=== PATIENT | male | born 1985 | race American Indian/Alaskan Native ===

== ENCOUNTER 2016-07-24 18:48 | Emergency (ER) | payer OTHER ==
[2016-07-24 19:02] VITALS: BP 118/58
[2016-07-24] MEDS ORDERED: Levofloxacin 500 MG Tab PO ONE (20:50)
[2016-07-24] MEDS ORDERED: Acetaminophen/HYDROcodone 325-10 MG Tab PO ONE (20:54)
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
== END 2016-07-24 21:08 | disposition home or self-care (01) ==
LOC: DL.ED 18:48
DX: S02.40DA Maxillary fracture, left side, initial encounter for closed fracture (principal); F17.210 Nicotine dependence, cigarettes, uncomplicated; Y04.0XXA Assault by unarmed brawl or fight, initial encounter; Z88.0 Allergy status to penicillin
CPT/HCPCS: 70486; 99284; A9270; 99283

== ENCOUNTER 2021-08-07 17:53 | Emergency (ER) | payer MEDICAID, OTHER ==
[2021-08-07] MEDS ORDERED: Acetaminophen 500 MG Tab PO ONE (17:55)
[2021-08-07 17:59] VITALS: BP 127/89; PULSE 80
== END 2021-08-07 19:38 | disposition home or self-care (01) ==
LOC: DL.ED 17:53
DX: S06.0X0A Concussion without loss of consciousness, initial encounter (principal); S02.2XXA Fracture of nasal bones, initial encounter for closed fracture; Z88.0 Allergy status to penicillin; Y04.0XXA Assault by unarmed brawl or fight, initial encounter
CPT/HCPCS: 70450; 70486; 72125; 99284; A9270

== ENCOUNTER 2021-08-09 00:43 | Emergency (ER) | payer MEDICAID, OTHER ==
[2021-08-09 01:07] VITALS: BP 126/78; PULSE 115
== END 2021-08-09 03:40 | disposition home or self-care (01) ==
LOC: DL.ED 00:43
DX: S02.2XXA Fracture of nasal bones, initial encounter for closed fracture (principal); S22.42XA Multiple fractures of ribs, left side, initial encounter for closed fracture; S01.81XA Laceration without foreign body of other part of head, initial encounter; S60.413A Abrasion of left middle finger, initial encounter; S60.415A Abrasion of left ring finger, initial encounter; Z88.0 Allergy status to penicillin; Y04.0XXA Assault by unarmed brawl or fight, initial encounter
CPT/HCPCS: 70450; 71101-LT; 99282; 99285-25